=== PATIENT | female | born 1975 | race Hispanic/Latino ===

== ENCOUNTER 2025-01-18 10:25 | Emergency (ER) | payer OTHER ==
[~2025-01-18] VITALS: Ht 152.4 cm; Wt 80.3 kg
--- NOTE | 2025-01-18 11:06 | ERN ---
General Stated Complaint: DEHYDRATED, DIZZINESS Time Seen by MD: 10:25 Source: patient History of Present Illness Initial Comments Patient is a 49-year-old female coming in to be evaluated for abdominal discomfort. Patient states he was on her 2nd round of H pylori treatment and states he has been having discomfort with nauseousness. No fever or chills Allergies: Coded Allergies: No Known Drug Allergies (Unverified Allergy, Unknown, 01/18/25) ROS Dictation CONSTITUTIONAL: No chills, no fever, no weakness, no diaphoresis, no malaise. HEAD/FACE: No signs of trauma. EENT: No eye pain, no blurred vision, no tearing, no double vision, no ear pain, no ear discharge, no nose pain, no nasal congestion, no throat pain, no throat swelling, no mouth pain. RESPIRATORY: No cough, no orthopnea, no SOB, no stridor, no wheezing. CARDIOVASCULAR: No chest pain, no edema, no palpitations, no syncope. GASTROINTESTINAL/ABDOMINAL: No abdominal pain, no constipation, no diarrhea, no nausea, no vomiting. GENITOURINARY: No abnormal discharge, no dysuria, no frequent urination, no hematuria. No complaints of pain in the genitals. MUSCULOSKELETAL: No back pain, no gout, no joint pain, no joint swelling, no muscle pain, no muscle stiffness, no neck pain. INTEGUMENTARY: No change in color, no change in hair/nails, no dryness, no lesion, no lumps, no rash. NEUROLOGICAL/PSYCH: No anxiety, not depressed, no emotional problem, no headache, no numbness, no pre-existing deficit, no history of seizures, no tremors, no weakness. HEMATOLOGIC/LYMPHATIC: Not anemic, no history of blood clots, no apparent bleeding, no bruising, glands not swollen. All Systems Negative, Except as Noted. Physical Exam Physical Exam Dictation VITAL SIGNS: Reviewed. GENERAL APPEARANCE: Alert, oriented x3, no acute distress, obese. HEAD AND FACE: Non-traumatic. EYES: PERRL, pink conjunctivas, eyelid no trauma, anterior chamber clear. EARS: Pinnas intact and no signs of trauma or erythema. Ear canals clear and no discharge. TMs no erythema. NOSE: No discharge, no bleeding. OROPHARYNX: Mouth normal, teeth no caries, tongue pink. Pharynx clear, no erythema. Tonsils no exudates, no abscesses noted. Mucous membrane moist. NECK: Supple, non-tender, no thyromegaly, no masses, no JVD, no bruits. BREAST: Deferred. CHEST: No tenderness, no crepitus, no paradoxical movement, no retractions. LUNGS: Clear, well-ventilated, symmetric, no rales, no wheezing, no rhonchi, no stridor, good breath sounds bilaterally. HEART: Regular rate, regular rhythm, no murmur, no gallops. VASCULAR: No peripheral edema. ABDOMEN: Soft, positive bowel sounds, nondistended, no guarding, nontender, no rebound, no masses no hepatomegaly, no splenomegaly, no Cabrera's sign, no hernias. RECTAL: Deferred. GENITAL: Deferred. NEUROLOGICAL: Normal speech, gross motor function intact, gross sensory function intact. MUSCULOSKELETAL: Neck nontender, full range of motion, back nontender, full range of motion. EXTREMITIES: Nontender, full range of motion. SKIN: Color pink, dry, no turgor, no rash, no lacerations, no abrasions, no con tusions. LYMPHATICS: Deferred. Results Laboratory and Microbiology Lab and Micro Result Laboratory Tests Test 01/18/25 11:25 01/18/25 11:29 Urine Color YELLOW (YELLOW) Urine Appearance CLOUDY (CLEAR) H Urine pH 5.0 (5.0-8.0) Urine Specific [place] 1.032 (1.001-1.031) Urine Protein 20 mg/dL (NEGATIVE) H Urine Glucose (UA) 200 mg/dL (NEGATIVE) H Urine Ketones 10 mg/dL (NEGATIVE) H Urine Occult Blood SMALL (NEGATIVE) H Urine Nitrate NEGATIVE (NEGATIVE) Urine Bilirubin NEGATIVE mg/dL (NEGATIVE) Urine Urobilinogen 0.2 mg/dL (0.2-1.0) Urine Leukocyte Esterase 250 Donovan/uL (NEGATIVE) H Urine RBC 2-5 /HPF (0-1) H Urine WBC 6-10 /HPF (0-1) H Urine Squamous Epithelial Cells MANY /HPF (0-2) Urine Bacteria RARE /HPF (None Seen) White Blood Count 10.2 K/uL (4.8-10.8) Red Blood Count 5.60 MIL/uL (4.00-5.50) H Hemoglobin 16.3 g/dL (12.0-16.0) H Hematocrit 48.4 % (36-48) H Mean Corpuscular Volume 86.4 fL (79-99) Mean Corpuscular Hemoglobin 29.1 pg (27.0-33.0) Mean Corpuscular Hemoglobin Concent 33.7 g/dL (32.0-36.0) Red Cell Distribution Width 12.8 % (11.0-15.5) Platelet Count 257 K/uL (130-400) Mean Platelet Volume 10.6 fL (7.5-10.5) H Immature Granulocyte % (Auto) 0.2 % (0-1) Neutrophils (%) (Auto) 58.7 % (40.0-77.0) Lymphocytes (%) (Auto) 32.3 % (21.0-51.0) Monocytes (%) (Auto) 8.0 % (3.0-13.0) Eosinophils (%) (Auto) 0.5 % (0.0-8.0) Basophils (%) (Auto) 0.3 % (0.0-5.0) Neutrophils # (Auto) 6.0 K/uL (1.8-7.7) Lymphocytes # (Auto) 3.3 K/uL (1.0-4.8) Monocytes # (Auto) 0.8 K/uL (0.1-1.0) Eosinophils # (Auto) 0.05 K/uL (0.00-0.70) Basophils # (Auto) 0.03 K/uL (0.00-0.20) Absolute Immature Granulocyte (auto 0.02 K/uL (0-1) Nucleated Red Blood Cells 0.0 % (0.0-0.19) Sodium Level 136 mmol/L (136-145) Potassium Level 4.1 mmol/L (3.5-5.1) Chloride Level 101 mmol/L (101-111) Carbon Dioxide Level 29 mmol/L (21-32) Blood Urea Nitrogen 20 mg/dL (7-18) H Creatinine 0.8 mg/dL (0.5-1.0) Glomerular Filtration Rate Calc 90 mL/min (>90) Random Glucose 134 mg/dL (70-105) H Total Calcium 9.5 mg/dL (8.5-10.1) Total Bilirubin 1.0 mg/dL (0.2-1.0) Aspartate Amino Transf (AST/SGOT) 26 U/L (10-37) Alanine Aminotransferase (ALT/SGPT) 35 U/L (12-78) Alkaline Phosphatase 121 U/L (50-136) Total Creatine Kinase 79 U/L (21-232) Troponin I High Sensitivity 5 ng/L (4-50) Total Protein 8.3 g/dL (6.0-8.3) Albumin 4.1 g/dL (3.5-5.0) Lipase 32 U/L (16-77) Labs Reviewed?: Yes MDM MDM: Differential diagnosis: GASTRITIS, H PYLORI, MEDICATION SIDE EFFECT PATIENT IS A 49-YEAR-OLD FEMALE COMING IN TO BE EVALUATED FOR NAUSEOUSNESS. PER PATIENT SHE WAS BEEN TAKING HER H PYLORI MEDICATIONS EVERY TIME SHE TAKES IT SHE FEELS NAUSEOUS. ALONG WITH THIS MEDICATION PATIENT WAS TAKING A FPC P1 MEDICATION. I DID ADVISED HER TO HOLD OFF ON THAT UNTIL HER SYMPTOMS HAD RESOLVED. PATIENT WILL BE DISCHARGED IN STABLE CONDITION. ED Course Orders Procedure Category Date Status Time Cbc With Differential LAB 01/18/25 Complete 10:57 Comprehensive LAB 01/18/25 Complete Metabolic Panel 10:57 Troponin I High LAB 01/18/25 Complete Sensitivity 10:57 Urinalysis Profile LAB 01/18/25 Complete 10:57 Creatine Kinase, Total LAB 01/18/25 Complete 10:57 Lipase LAB 01/18/25 Complete 10:57 0.9%Nacl 1000ml (Ns PHA 01/18/25 Complete 1000ml) 11:00 Ondansetron 4mg Inj PHA 01/18/25 Complete (Zofran 4mg Inj) 11:00 Pantoprazole 40mg Inj PHA 01/18/25 Complete (Protonix 40mg Inj 11:00 Culture Urine RADHIKA 01/18/25 In Process 11:55 Lidocaine Hcl 2% PHA 01/18/25 Complete Viscous (Lidocaine Hcl 13:00 Mag/Alum/Simeth 30ml PHA 01/18/25 Complete (Maalox Plus 30ml) 13:00 Current Medications Medications (Trade) Dose Ordered Sig/Balbir Route PRN Reason Start Time Stop Time Status Last Admin Dose Admin Al Hydroxide/Mg Hydroxide (MAALox PLUS 30ML) 30 ml ONCE ONCE PO 01/18/25 13:00 01/18/25 13:11 DC 01/18/25 13:17 Lidocaine HCl (Lidocaine HCl 2% Viscous) 10 ml ONCE ONCE PO 01/18/25 13:00 01/18/25 13:11 DC 01/18/25 13:17 Ondansetron HCl (zoFRAN 4MG INJ) 4 mg ONCE ONCE IVP 01/18/25 11:00 01/18/25 11:23 DC 01/18/25 11:48 Pantoprazole Sodium (PROTonix 40MG INJ) 40 mg ONCE ONCE IVP 01/18/25 11:00 01/18/25 11:23 DC 01/18/25 11:47 Sodium Chloride 1,000 ml @ 0 mls/hr ONCE ONCE IV 01/18/25 11:00 01/18/25 11:23 DC 01/18/25 11:47 Vital Signs Date Time Temp Pulse Resp B/P (MAP) Pulse Ox O2 Delivery O2 Flow Rate FiO2 01/18/25 13:21 98.8 82 18 121/89 97 Room Air* 0 21 01/18/25 12:26 98.8 80 18 127/89 97 Room Air* 0 21 01/18/25 11:21 98.8 82 18 132/90 97 Room Air 0 DX & DISP Disposition: Discharge Departure Impression: Primary Impression: Medication side effect Condition: Stable Additional Instructions: FOLLOW-UP WITH PRIMARY CARE PROVIDER IN 1 TO 2 DAYS. TAKE MEDICATIONS DIRECTED HERE IN THE EMERGENCY ROOM. OKAY TO CONTINUE HOME MEDICATIONS UNLESS OTHERWISE DISCUSSED DURING YOUR VISIT IN THE EMERGENCY ROOM TODAY. RETURN TO YOUR NEAREST EMERGENCY ROOM IF SYMPTOMS WORSEN OR IF THERE IS NO IMPROVEMENT. CALL 911 IF YOU NEED IMMEDIATE ASSISTANCE. TAKE TYLENOL [id number] NEEDED AND IF NO CONTRAINDICATIONS ARE PRESENT. INCREASE ORAL HYDRATION. A WOUND CULTURE OR URINE CULTURE WAS ORDERED HERE IN THE EMERGENCY ROOM DEPARTMENT PLEASE FOLLOW-UP WITH PRIMARY CARE PROVIDER AND ADVISE THEM TO GET REPEAT PORTS FROM OUR FACILITY. IF YOU HAD ANY KALYN WRAP/SPLINTS THAT WERE APPLIED HERE, PLEASE DO NOT REMOVE THEM UNTIL YOU SEE YOUR PRIMARY CARE OR SPECIALTY. REFERRALS: Referrals: SELF,REFERRAL (PCP) ALEXIS REHMAN MD Time of Disposition: 13:30 JEREMY GONZALEZ MD Jan 18, 2025 11:06
[2025-01-18 11:44] LABS: BASOPHILS # (AUTO) 0.03 K/uL (0.00-0.20); BASOPHILS % (AUTO) 0.3 % (0.0-5.0); EOSINOPHILS # (AUTO) 0.05 K/uL (0.00-0.70); EOSINOPHILS % (AUTO) 0.5 % (0.0-8.0); HEMATOCRIT 48.4 % (36-48); IMMATURE GRANULOCYTE ABSOLUTE 0.02 K/uL (0-1); LYMPHOCYTES # (AUTO) 3.3 K/uL (1.0-4.8); LYMPHOCYTES % (AUTO) 32.3 % (21.0-51.0); MEAN CORPUSCULAR HEMOGLOBIN 29.1 pg (27.0-33.0); MEAN CORPUSCULAR HGB CONC 33.7 g/dL (32.0-36.0); MEAN CORPUSCULAR VOLUME 86.4 fL (79-99); MONOCYTES # (AUTO) 0.8 K/uL (0.1-1.0); NEUTROPHILS % (AUTO) 58.7 % (40.0-77.0); PLATELET COUNT (AUTO) 257 K/uL (130-400); RED CELL DISTRIBUTION WIDTH 12.8 % (11.0-15.5); WHITE BLOOD COUNT (AUTO) 10.2 K/uL (4.8-10.8)
[2025-01-18 11:47] LABS: APPEARANCE,URINE CLOUDY (CLEAR); BILIRUBIN,URINE NEGATIVE (NEGATIVE); COLOR,URINE YELLOW (YELLOW); GLUCOSE, URINE (UA) 200 mg/dL (NEGATIVE); KETONES,URINE 10 mg/dL (NEGATIVE); LEUKOCYTE ESTERASE ,URINE 250 Leu/uL (NEGATIVE); NITRATE,URINE NEGATIVE (NEGATIVE); OCCULT BLOOD,URINE SMALL (NEGATIVE); PROTEIN,URINE 20 mg/dL (NEGATIVE); UROBILINOGEN,URINE 0.2 mg/dL (0.2-1.0)
[2025-01-18] MEDS: 0.9%NACL 1000ML 1,000 ML IV ONE (11:47)
[2025-01-18] MEDS: PANTOPrazole 40 MG/VIAL IVP ONE (11:47)
[2025-01-18] MEDS: ondanSETRON 4MG INJ IVP ONE (11:48)
[2025-01-18 11:55] LABS: ADD UA MICROSCOPIC YES
[2025-01-18 11:58] LABS: ALBUMIN 4.1 g/dL (3.5-5.0); CREATININE 0.8 mg/dL (0.5-1.0); POTASSIUM 4.1 mmol/L (3.5-5.1); TOTAL PROTEIN, SERUM 8.3 g/dL (6.0-8.3)
[2025-01-18 12:02] LABS: BACTERIA,URINE RARE /HPF (None Seen); MUCUS,URINE FEW LPF (None Seen); SQUAMOUS EPITHELIAL CELL,UR MANY /HPF (0-2)
[2025-01-18] MEDS: MAG/ALUM/SIMETH 30 ML UDCUP PO ONE (13:17)
[2025-01-18] MEDS: LIDOCAINE HCL 2% VISCOUS 15 ML UDCUP PO ONE (13:17)
[2025-01-18 13:21] VITALS: BP 121/89; PULSE 82; RESP 18; TEMP 98.8; O2SAT 97
== END 2025-01-18 13:41 | disposition home or self-care (01) ==
LOC: EDH 10:25
DX: R10.84 Generalized abdominal pain (principal); R11.0 Nausea; T50.995A Adverse effect of other drugs, medicaments and biological substances, initial encounter; Y92.89 Other specified places as the place of occurrence of the external cause
CPT/HCPCS: 99284; 96374; 96361; 96375; 82550; 84484; 80053; 83690; 85025; 87086; 81001; 36415; J7030; J2405; J2470